=== PATIENT | female | born 1985 | race Caucasian/White ===

== ENCOUNTER 2021-09-17 13:10 | Emergency (ER) | payer BC ==
[2021-09-17 14:48] LABS: Bilirubin Neg (Negative); Blood, Urine Negative (Negative); Clarity Slightly Cloudy (Clear); Glucose, Urine (Dipstick) Normal (Negative); Ketone, Urine 5 mg/dL (Negative); Leukocyte 25 (Negative); Nitrite Negative (Negative); Protein, Urine (Dipstick) 15 mg/dl (Neg-Trace); Specific Gravity, Urine 1.025 (1.002-1.036); Urobilinogen Normal mg/dL (Less than 2)
[2021-09-17 15:03] LABS: RBC/HPF 0-3 HPF (0-3); Squamous Epithelial 0-3 HPF (0-3)
[2021-09-17 15:04] LABS: Bacteria/HPF 2+ HPF (None Seen); Mucous/LPF 2+ LPF (<2+)
[2021-09-17] MEDS ORDERED: Cephalexin 250 MG CAP ONE (17:00)
== END 2021-09-17 17:00 | disposition home or self-care (01) ==
LOC: CSHERS 13:10
DX: O23.42 Unspecified infection of urinary tract in pregnancy, second trimester (principal); N39.0 Urinary tract infection, site not specified; O44.02 Complete placenta previa NOS or without hemorrhage, second trimester; Z3A.14 14 weeks gestation of pregnancy
CPT/HCPCS: 76815; 81003; 81015; 87086

== ENCOUNTER 2022-01-03 13:10 | Day surgery (SDC) | payer BC ==
[2022-01-03 13:57] VITALS: BMI 23.3
[2022-01-03] MEDS ORDERED: Labetalol HCl 100 MG/20 ML VIAL SLOW IVP PRN (14:03)
[2022-01-03] MEDS ORDERED: Calcium Gluc 4.6 MEQ/10 ML (100 MG/ML) SLOW IVP PRN (14:03)
[2022-01-03] MEDS ORDERED: Lorazepam 2 MG/ML VIAL SLOW IVP PRN (14:03)
[2022-01-03] MEDS ORDERED: hydrALAZINE 20 MG/ML VIAL SLOW IVP PRN ×2 (14:03)
[2022-01-03 14:36] LABS: Creatinine, Urine 184.32 mg/dL (47-110)
[2022-01-03 15:37] LABS: #Basophils 0.1 10x3/uL (0.0-0.2); #Eosinphils 0.4 10x3/uL (0.0-0.5); #Monocytes 0.7 10x3/uL (0.0-1.1); #Neutrophils 7.8 10x3/uL (1.5-8.4); %Basophils 0.5 % (0.0-2.0); %Eosinophils 3.6 % (0.0-6.0); %Lymphocytes 18.8 % (18.0-47.0); %Monocytes 6.4 % (0.0-10.0); %Neutrophils 70.1 % (40.0-75.0); Hemoglobin 9.9 g/dL (12.0-15.5); Mean Corpuscular HGB CONC 34.1 g/dL (32.0-36.0); Mean Platelet Volume 9.3 fl (7.4-10.4); Platelet Count 281 10x3/uL (150-450); RBC Distribution Width 13.4 % (11.5-14.5); Red Blood Cell (RBC) Count 3.41 10x6/uL (3.90-5.03); White Blood Cell (WBC) Count 11.1 10x3/uL (3.5-10.5)
[2022-01-03 15:54] LABS: ALT (SGPT) 15 U/L (8-55); AST (SGOT) 22 U/L (5-34); Albumin 3.4 g/dL (3.5-5.0); Alkaline Phosphatase 99 U/L (40-110); Anion Gap 16 mmol/L (10-20); BUN (Urea Nitrogen) 10 mg/dL (7.0-18.7); Bilirubin, Total 0.3 mg/dL (0.2-1.2); Calc. Creatinine Clearance 129 mL/min (70-130); Calcium 8.5 mg/dL (7.8-10.44); Carbon Dioxide 19 mmol/L (22-29); Chloride 104 mmol/L (98-107); Estimated GFR 121; Globulin 2.5 g/dL (2.4-3.5); Glucose 67 mg/dL (70-105); Protein, Total 5.9 g/dL (6.0-8.3); Sodium 136 mmol/L (136-145)
[2022-01-03] MEDS ORDERED: Potassium Chloride 20 MEQ TAB PO SCH (16:30)
[2022-01-03] MEDS ORDERED: Cyclobenzaprine 10 MG TAB PO SCH (16:30)
[2022-01-03] MEDS ORDERED: Acetaminophen 500 MG TAB PO SCH (16:30)
== END 2022-01-03 18:38 | disposition home or self-care (01) ==
LOC: CSHLD/OP 13:10
PROVIDERS: ATTEND Obstetrics & Gynecology
DX: O60.03 Preterm labor without delivery, third trimester (principal); Z3A.29 29 weeks gestation of pregnancy; O16.3 Unspecified maternal hypertension, third trimester; O09.513 Supervision of elderly primigravida, third trimester; Z79.899 Other long term (current) drug therapy; Z88.1 Allergy status to other antibiotic agents; Z98.890 Other specified postprocedural states
CPT/HCPCS: 80053; 82570; 84156; 85025; 99285

== ENCOUNTER 2022-01-07 12:24 | Observation (INO) | payer BC ==
[2022-01-07] MEDS ORDERED: Labetalol HCl 100 MG/20 ML VIAL SLOW IVP PRN ×3 (13:35)
[2022-01-07] MEDS ORDERED: Lorazepam 2 MG/ML VIAL SLOW IVP PRN (13:35)
[2022-01-07] MEDS ORDERED: hydrALAZINE 20 MG/ML VIAL SLOW IVP PRN (13:35)
[2022-01-07] MEDS ORDERED: Zolpidem Tartrate 5 MG TAB PO PRN (13:41)
[2022-01-07 14:41] LABS: #Basophils 0.1 10x3/uL (0.0-0.2); #Eosinphils 0.8 10x3/uL (0.0-0.5); #Monocytes 0.7 10x3/uL (0.0-1.1); #Neutrophils 7.7 10x3/uL (1.5-8.4); %Basophils 0.5 % (0.0-2.0); %Eosinophils 6.9 % (0.0-6.0); %Lymphocytes 16.1 % (18.0-47.0); %Monocytes 6.5 % (0.0-10.0); %Neutrophils 69.4 % (40.0-75.0); Hemoglobin 9.9 g/dL (12.0-15.5); Mean Corpuscular HGB CONC 34.5 g/dL (32.0-36.0); Mean Corpuscular Hemoglobin 29.6 pg (27.0-33.0); Mean Corpuscular Volume 85.7 fl (81.6-98.3); Mean Platelet Volume 9.1 fl (7.4-10.4); Platelet Count 336 10x3/uL (150-450); RBC Distribution Width 13.2 % (11.5-14.5); Red Blood Cell (RBC) Count 3.35 10x6/uL (3.90-5.03); White Blood Cell (WBC) Count 11.1 10x3/uL (3.5-10.5)
[2022-01-07 14:54] LABS: ALT (SGPT) 27 U/L (8-55); AST (SGOT) 30 U/L (5-34); Albumin 3.4 g/dL (3.5-5.0); Alkaline Phosphatase 119 U/L (40-110); Anion Gap 19 mmol/L (10-20); BUN (Urea Nitrogen) 10 mg/dL (7.0-18.7); Bilirubin, Total 0.3 mg/dL (0.2-1.2); Calc. Creatinine Clearance 0 mL/min (70-130); Calcium 8.8 mg/dL (7.8-10.44); Carbon Dioxide 18 mmol/L (22-29); Chloride 104 mmol/L (98-107); Estimated GFR 117; Glucose 77 mg/dL (70-105); Potassium 3.5 mmol/L (3.5-5.1); Protein, Total 6.4 g/dL (6.0-8.3); Sodium 137 mmol/L (136-145)
[2022-01-07] MEDS ORDERED: HumaLOG 300 UNITS/3 ML VIAL SC PRN (15:09)
[2022-01-07] MEDS ORDERED: Dextrose 5% in Water 1,000 ML IV PRN (15:09)
[2022-01-07] MEDS ORDERED: Dextrose 50% Abboject 50 ML SYRINGE SLOW IVP PRN (15:09)
[2022-01-07 15:57] LABS: Creatinine, Urine 41.21 mg/dL (47-110); Protein, Urine Random Quant Less than 10 mg/dL (1-14)
[2022-01-07 15:58] VITALS: BMI 24.1
[2022-01-07] MEDS: Betamet Acet/Betamet Na Ph 30 MG/5 ML VIAL IM SCH (16:22)
[2022-01-07] MEDS: Ferrous Sulfate 325 MG TAB PO SCH (16:31)
[2022-01-07] MEDS ORDERED: Acetaminophen 500 MG TAB PO PRN (19:56)
[2022-01-07] MEDS ORDERED: NIFEdipine XL 90 MG TAB PO SCH (21:00)
[2022-01-08] MEDS ORDERED: NIFEdipine XL 60 MG TAB PO SCH ×2 (08:45→21:00)
[2022-01-08] MEDS ORDERED: Labetalol HCl 100 MG TAB PO SCH (08:45)
[2022-01-08] MEDS ORDERED: NIFEdipine XL 90 MG TAB PO SCH (09:00)
[2022-01-08] MEDS: Prenatal Vitamin 1 TAB PO SCH (09:21)
[2022-01-08] MEDS: Ferrous Sulfate 325 MG TAB PO SCH ×2 (09:21→17:24)
[2022-01-08] MEDS: Aspirin 81 mg Enteric Coated Tablet PO SCH (09:22)
[2022-01-08] MEDS: Betamet Acet/Betamet Na Ph 30 MG/5 ML VIAL IM SCH (15:08)
[2022-01-08] MEDS: Labetalol HCl 100 MG TAB PO SCH (21:28)
[2022-01-09] MEDS: Ferrous Sulfate 325 MG TAB PO SCH (08:58)
[2022-01-09] MEDS: Prenatal Vitamin 1 TAB PO SCH (08:58)
[2022-01-09] MEDS: Aspirin 81 mg Enteric Coated Tablet PO SCH (08:59)
[2022-01-09] MEDS: Labetalol HCl 100 MG TAB PO SCH (09:11)
[2022-01-09 10:17] VITALS: BP 119/70; TEMP 97.8
== END 2022-01-09 11:20 | disposition home health service (06) ==
LOC: CSHANTE 12:24
PROVIDERS: ADMIT Obstetrics & Gynecology; ATTEND Obstetrics & Gynecology
DX: O16.3 Unspecified maternal hypertension, third trimester (principal); Z3A.29 29 weeks gestation of pregnancy; O24.410 Gestational diabetes mellitus in pregnancy, diet controlled; O99.413 Diseases of the circulatory system complicating pregnancy, third trimester; Z79.82 Long term (current) use of aspirin; Z79.01 Long term (current) use of anticoagulants; Z79.899 Other long term (current) drug therapy; Z96.641 Presence of right artificial hip joint; Z98.890 Other specified postprocedural states
CPT/HCPCS: 36415; 36416; 80053; 82570; 84156; 85025; J0702; J1815

== ENCOUNTER 2022-01-13 00:16 | Observation (INO) | payer BC ==
[2022-01-13 00:43] VITALS: BMI 24.3
[2022-01-13] MEDS ORDERED: hydrALAZINE 20 MG/ML VIAL SLOW IVP PRN ×2 (01:24→07:30)
[2022-01-13 02:28] LABS: #Eosinphils 0.7 10x3/uL (0.0-0.5); #Monocytes 0.6 10x3/uL (0.0-1.1); #Neutrophils 4.2 10x3/uL (1.5-8.4); %Basophils 0.1 % (0.0-2.0); %Eosinophils 9.4 % (0.0-6.0); %Lymphocytes 26.9 % (18.0-47.0); %Monocytes 8.1 % (0.0-10.0); %Neutrophils 54.8 % (40.0-75.0); Mean Corpuscular HGB CONC 33.6 g/dL (32.0-36.0); Mean Corpuscular Hemoglobin 29.1 pg (27.0-33.0); Mean Corpuscular Volume 86.7 fl (81.6-98.3); Mean Platelet Volume 9.3 fl (7.4-10.4); Platelet Count 369 10x3/uL (150-450); RBC Distribution Width 14.3 % (11.5-14.5); Red Blood Cell (RBC) Count 3.09 10x6/uL (3.90-5.03); White Blood Cell (WBC) Count 7.6 10x3/uL (3.5-10.5)
[2022-01-13 02:47] LABS: ALT (SGPT) 66 U/L (8-55); AST (SGOT) 37 U/L (5-34); Albumin 3.1 g/dL (3.5-5.0); Alkaline Phosphatase 97 U/L (40-110); Anion Gap 12 mmol/L (10-20); BUN (Urea Nitrogen) 13 mg/dL (7.0-18.7); Bilirubin, Total 0.2 mg/dL (0.2-1.2); Calc. Creatinine Clearance 121 mL/min (70-130); Calcium 9.2 mg/dL (7.8-10.44); Carbon Dioxide 24 mmol/L (22-29); Chloride 105 mmol/L (98-107); Estimated GFR 118; Globulin 2.6 g/dL (2.4-3.5); Glucose 85 mg/dL (70-105); Potassium 3.1 mmol/L (3.5-5.1); Protein, Total 5.7 g/dL (6.0-8.3); Sodium 138 mmol/L (136-145)
[2022-01-13] MEDS ORDERED: Ondansetron PF 4 MG/2 ML Vial IVP PRN (07:30)
[2022-01-13] MEDS ORDERED: Acetaminophen 500 MG TAB PO PRN (07:30)
[2022-01-13] MEDS ORDERED: Promethazine HCl 25 MG/ML VIAL IM PRN (07:30)
[2022-01-13] MEDS ORDERED: Labetalol HCl 200 MG TAB PO SCH (09:00)
[2022-01-13 11:37] VITALS: TEMP 98.1
[2022-01-13 14:37] LABS: Hemoglobin 8.7 g/dL (12.0-15.5); Mean Corpuscular HGB CONC 33.5 g/dL (32.0-36.0); Mean Corpuscular Hemoglobin 29.7 pg (27.0-33.0); Mean Corpuscular Volume 88.7 fl (81.6-98.3); Mean Platelet Volume 9.5 fl (7.4-10.4); Platelet Count 353 10x3/uL (150-450); RBC Distribution Width 14.2 % (11.5-14.5); Red Blood Cell (RBC) Count 2.93 10x6/uL (3.90-5.03)
[2022-01-13 14:50] LABS: ALT (SGPT) 56 U/L (8-55); AST (SGOT) 29 U/L (5-34); Albumin 2.9 g/dL (3.5-5.0); Alkaline Phosphatase 94 U/L (40-110); Anion Gap 11 mmol/L (10-20); BUN (Urea Nitrogen) 11 mg/dL (7.0-18.7); Bilirubin, Total 0.2 mg/dL (0.2-1.2); Calc. Creatinine Clearance 102 mL/min (70-130); Calcium 8.6 mg/dL (7.8-10.44); Carbon Dioxide 27 mmol/L (22-29); Chloride 106 mmol/L (98-107); Estimated GFR 112; Globulin 2.5 g/dL (2.4-3.5); Glucose 115 mg/dL (70-105); Potassium 3.3 mmol/L (3.5-5.1); Protein, Total 5.4 g/dL (6.0-8.3); Sodium 141 mmol/L (136-145)
[2022-01-13 15:59] VITALS: BP 118/69
[2022-01-13] MEDS ORDERED: NIFEdipine XL 60 MG TAB PO SCH (21:00)
== END 2022-01-13 16:30 | disposition home or self-care (01) ==
LOC: CSHLD/OP 00:16 → CSHLD 08:06 → CSHANTE 09:00
PROVIDERS: ADMIT Obstetrics & Gynecology; ATTEND Obstetrics & Gynecology
DX: O13.3 Gestational [pregnancy-induced] hypertension without significant proteinuria, third trimester (principal); O24.419 Gestational diabetes mellitus in pregnancy, unspecified control; Z79.899 Other long term (current) drug therapy; Z88.0 Allergy status to penicillin; Z3A.30 30 weeks gestation of pregnancy
CPT/HCPCS: 36415; 80053; 82570; 84156; 85025; 99283; G0378

== ENCOUNTER 2022-01-27 11:46 | Day surgery (SDC) | payer BC ==
[2022-01-27] MEDS ORDERED: Acetaminophen 500 MG TAB ONE (12:03)
[2022-01-27] MEDS ORDERED: Acetaminophen 500 MG TAB PO SCH (12:15)
[2022-01-27] MEDS ORDERED: Iron Sucrose Complex 500 MG in Sodium Chloride 0.9% 250 ML 250 ML IVPB SCH (12:15)
== END 2022-01-27 16:45 | disposition home or self-care (01) ==
LOC: CSHSDC/OP 11:46
PROVIDERS: ATTEND Obstetrics & Gynecology
DX: O99.012 Anemia complicating pregnancy, second trimester (principal); D64.9 Anemia, unspecified; Z88.0 Allergy status to penicillin
CPT/HCPCS: J1756; J7050

== ENCOUNTER 2022-01-30 23:47 | Day surgery (SDC) | payer BC ==
[2022-01-31 00:13] VITALS: BMI 24.3
[2022-01-31] MEDS ORDERED: hydrALAZINE 20 MG/ML VIAL SLOW IVP PRN (00:48)
[2022-01-31 01:34] LABS: #Basophils 0.1 10x3/uL (0.0-0.2); #Eosinphils 0.3 10x3/uL (0.0-0.5); #Monocytes 0.6 10x3/uL (0.0-1.1); #Neutrophils 4.6 10x3/uL (1.5-8.4); %Basophils 0.7 % (0.0-2.0); %Eosinophils 4.2 % (0.0-6.0); %Lymphocytes 30.6 % (18.0-47.0); %Monocytes 7.6 % (0.0-10.0); %Neutrophils 56.2 % (40.0-75.0); Hemoglobin 9.5 g/dL (12.0-15.5); Mean Corpuscular HGB CONC 33.5 g/dL (32.0-36.0); Mean Corpuscular Hemoglobin 29.6 pg (27.0-33.0); Mean Corpuscular Volume 88.5 fl (81.6-98.3); Mean Platelet Volume 9.4 fl (7.4-10.4); Platelet Count 219 10x3/uL (150-450); RBC Distribution Width 15.8 % (11.5-14.5); Red Blood Cell (RBC) Count 3.21 10x6/uL (3.90-5.03); White Blood Cell (WBC) Count 8.1 10x3/uL (3.5-10.5)
[2022-01-31 01:42] LABS: Bilirubin Neg (Negative); Blood, Urine Negative (Negative); Clarity Clear (Clear); Glucose, Urine (Dipstick) Normal (Negative); Ketone, Urine 5 mg/dL (Negative); Leukocyte Negative (Negative); Nitrite Negative (Negative); Protein, Urine (Dipstick) Negative (Neg-Trace); Specific Gravity, Urine 1.005 (1.005-1.030); Urobilinogen Normal mg/dL (Less than 2)
[2022-01-31 01:50] LABS: ALT (SGPT) 11 U/L (8-55); AST (SGOT) 21 U/L (5-34); Alkaline Phosphatase 144 U/L (40-110); Anion Gap 13 mmol/L (10-20); BUN (Urea Nitrogen) 11 mg/dL (7.0-18.7); Bilirubin, Total 0.2 mg/dL (0.2-1.2); Calc. Creatinine Clearance 130 mL/min (70-130); Carbon Dioxide 21 mmol/L (22-29); Chloride 107 mmol/L (98-107); Estimated GFR 120; Globulin 2.5 g/dL (2.4-3.5); Glucose 83 mg/dL (70-105); Potassium 3.3 mmol/L (3.5-5.1); Protein, Total 5.5 g/dL (6.0-8.3); Sodium 138 mmol/L (136-145)
[2022-01-31 01:54] LABS: Bacteria/HPF 1+ HPF (None Seen); RBC/HPF None Seen HPF (0-3); Squamous Epithelial 0-3 HPF (0-3); WBC/HPF 0-3 HPF (0-3)
[2022-01-31 01:55] LABS: Urine Culture Reflex Yes Yes
[2022-01-31 02:01] LABS: Creatinine, Urine 20.96 mg/dL (47-110); Protein, Urine Random Quant Less than 10 mg/dL (1-14)
== END 2022-01-31 09:10 | disposition home or self-care (01) ==
LOC: CSHLD/OP 23:47
PROVIDERS: ATTEND Obstetrics & Gynecology
DX: O16.3 Unspecified maternal hypertension, third trimester (principal); O24.410 Gestational diabetes mellitus in pregnancy, diet controlled; Z3A.33 33 weeks gestation of pregnancy; Z88.1 Allergy status to other antibiotic agents; Z91.018 Allergy to other foods; Z79.82 Long term (current) use of aspirin; Z79.899 Other long term (current) drug therapy
CPT/HCPCS: 36415; 76819; 80053; 81001; 82570; 84156; 85025; 87086; 99284

== ENCOUNTER 2022-02-20 11:16 | Day surgery (SDC) | payer BC ==
[2022-02-20] MEDS ORDERED: hydrALAZINE 20 MG/ML VIAL SLOW IVP PRN (13:39)
[2022-02-20 13:43] LABS: #Eosinphils 0.2 10x3/uL (0.0-0.5); #Monocytes 0.6 10x3/uL (0.0-1.1); %Basophils 0.5 % (0.0-2.0); %Eosinophils 2.6 % (0.0-6.0); %Lymphocytes 21.4 % (18.0-47.0); %Monocytes 6.6 % (0.0-10.0); Hemoglobin 10.9 g/dL (12.0-15.5); Mean Corpuscular HGB CONC 34.1 g/dL (32.0-36.0); Mean Corpuscular Hemoglobin 30.4 pg (27.0-33.0); Mean Corpuscular Volume 89.4 fl (81.6-98.3); Mean Platelet Volume 10.1 fl (7.4-10.4); Platelet Count 225 10x3/uL (150-450); RBC Distribution Width 15.6 % (11.5-14.5); Red Blood Cell (RBC) Count 3.58 10x6/uL (3.90-5.03); White Blood Cell (WBC) Count 8.9 10x3/uL (3.5-10.5)
[2022-02-20 14:01] LABS: ALT (SGPT) 10 U/L (8-55); AST (SGOT) 18 U/L (5-34); Albumin 3.2 g/dL (3.5-5.0); Alkaline Phosphatase 161 U/L (40-110); Anion Gap 12 mmol/L (10-20); BUN (Urea Nitrogen) 9 mg/dL (7.0-18.7); Bilirubin, Total 0.3 mg/dL (0.2-1.2); Calc. Creatinine Clearance 0 mL/min (70-130); Calcium 8.8 mg/dL (7.8-10.44); Carbon Dioxide 22 mmol/L (22-29); Chloride 107 mmol/L (98-107); Estimated GFR 117; Globulin 2.8 g/dL (2.4-3.5); Glucose 86 mg/dL (70-105); Potassium 3.9 mmol/L (3.5-5.1); Sodium 137 mmol/L (136-145)
== END 2022-02-20 15:55 | disposition home or self-care (01) ==
LOC: CSHLD/OP 11:16
PROVIDERS: ATTEND Obstetrics & Gynecology
DX: O16.3 Unspecified maternal hypertension, third trimester (principal); O24.410 Gestational diabetes mellitus in pregnancy, diet controlled; Z3A.36 36 weeks gestation of pregnancy; Z79.899 Other long term (current) drug therapy
CPT/HCPCS: 76819; 80053; 81003; 82570; 85025

== ENCOUNTER 2022-02-23 14:06 | Inpatient (IN) | payer BC ==
[~2022-02-23 14:06] MED LIST: Bupivacaine 0.25% HCL 30 ML VIAL ONE; Bupivacaine/Epinephrine 0.25% 30 ML VIAL ONE; ePHEDrine Sulfate 50 MG/10 ML VIAL ONE
[2022-02-23 14:46] VITALS: BMI 25.0
[2022-02-23] MEDS ORDERED: Diphenoxylate HCl/Atropine Tablet PO PRN ×2 (15:18)
[2022-02-23] MEDS ORDERED: Butorphanol Tartrate 1 MG/ML VIAL SLOW IVP PRN (15:18)
[2022-02-23] MEDS ORDERED: hydrALAZINE 20 MG/ML VIAL SLOW IVP PRN ×3 (15:18)
[2022-02-23] MEDS ORDERED: Lorazepam 2 MG/ML VIAL SLOW IVP PRN (15:18)
[2022-02-23] MEDS ORDERED: Labetalol HCl 100 MG/20 ML VIAL SLOW IVP PRN (15:18)
[2022-02-23] MEDS ORDERED: Ibuprofen 800 MG TAB PO PRN (15:18)
[2022-02-23] MEDS ORDERED: Calcium Gluc 4.6 MEQ/10 ML (100 MG/ML) SLOW IVP PRN (15:18)
[2022-02-23] MEDS ORDERED: HYDROcodone/Acetaminophen 5/325 mg Tablet PO PRN ×2 (15:18)
[2022-02-23] MEDS ORDERED: Misoprostol 200 MCG TAB PR PRN (15:18)
[2022-02-23] MEDS ORDERED: Acetaminophen 500 MG TAB PO PRN (15:18)
[2022-02-23] MEDS ORDERED: Lidocaine 1% (PF) 30 ML VIAL SC PRN (15:18)
[2022-02-23] MEDS ORDERED: Ondansetron PF 4 MG/2 ML Vial IVP PRN ×2 (15:18→21:50)
[2022-02-23] MEDS ORDERED: Promethazine HCl 25 MG/ML VIAL IM PRN ×2 (15:18→21:50)
[2022-02-23] MEDS ORDERED: Carboprost 250 MCG/ML AMP IM PRN (15:18)
[2022-02-23] MEDS ORDERED: NS w/ Oxytocin 30 units 500 ML IV SCH ×2 (15:30)
[2022-02-23] MEDS: Misoprostol 100 MCG TAB VAG SCH ×2 (15:41→22:48)
[2022-02-23 15:45] LABS: Hemoglobin 11.5 g/dL (12.0-15.5); Mean Corpuscular HGB CONC 33.9 g/dL (32.0-36.0); Mean Corpuscular Volume 88.5 fl (81.6-98.3); Mean Platelet Volume 10.1 fl (7.4-10.4); Platelet Count 241 10x3/uL (150-450); RBC Distribution Width 15.4 % (11.5-14.5); Red Blood Cell (RBC) Count 3.83 10x6/uL (3.90-5.03); White Blood Cell (WBC) Count 9.1 10x3/uL (3.5-10.5)
[2022-02-23 16:19] LABS: HBSAg Index 0.14 S/CO (0-0.99); Hep B Surf Ag Non-Reactive S/CO (NonReactive)
[2022-02-23 16:21] LABS: Syphilis Antibody Nonreactive (Nonreactive); Syphilis Antibody Index 0.06 S/CO (<1.00 Non-Reactive)
[2022-02-23] MEDS ORDERED: Magnesium Sulfate 20 gm/500 ml 20 GM/500 ML BAG ONE (17:39)
[2022-02-23 17:44] LABS: ALT (SGPT) 8 U/L (8-55); AST (SGOT) 19 U/L (5-34); Albumin 3.3 g/dL (3.5-5.0); Alkaline Phosphatase 187 U/L (40-110); Anion Gap 16 mmol/L (10-20); BUN (Urea Nitrogen) 10 mg/dL (7.0-18.7); Bilirubin, Total 0.3 mg/dL (0.2-1.2); Calc. Creatinine Clearance 120 mL/min (70-130); Calcium 8.6 mg/dL (7.8-10.44); Carbon Dioxide 18 mmol/L (22-29); Chloride 105 mmol/L (98-107); Estimated GFR 116; Globulin 2.4 g/dL (2.4-3.5); Glucose 122 mg/dL (70-105); Potassium 3.6 mmol/L (3.5-5.1); Protein, Total 5.7 g/dL (6.0-8.3); Sodium 135 mmol/L (136-145)
[2022-02-23 19:14] LABS: Creatinine, Urine 46.64 mg/dL (47-110)
[2022-02-23] MEDS: Labetalol HCl 100 MG/20 ML VIAL SLOW IVP PRN ×2 (19:16→20:40)
[2022-02-23] MEDS ORDERED: Fentanyl 2 mcg/Bup 0.1% Cadd 100 ML ONE (20:15)
[2022-02-23] MEDS ORDERED: PHENYLEPHRINE-NS 100 MCG/ML 10 ML SYRINGE ONE (21:36)
[2022-02-23] MEDS ORDERED: Moisturizing Cream (Eucerin) 113 GM JAR TOP PRN (21:50)
[2022-02-23] MEDS ORDERED: Acetaminophen 325 MG TAB PO PRN (21:50)
[2022-02-23] MEDS ORDERED: diphenhydrAMINE 50 MG/ML VIAL IVP PRN (21:50)
[2022-02-23] MEDS ORDERED: Naloxone HCl 0.4 mg/ml Vial IVP PRN ×2 (21:50)
[2022-02-23] MEDS ORDERED: Lactated Ringer's 500 ML IV PRN (21:50)
[2022-02-23] MEDS ORDERED: ePHEDrine Sulfate 50 MG/10 ML VIAL SLOW IVP PRN (21:50)
[2022-02-23] MEDS ORDERED: Fentanyl 2 mcg/Bupivacaine 0.1% Cassette 100 ML EPIDURAL SCH (22:00)
[2022-02-23] MEDS ORDERED: Communication Order-Pharmacy FS SCH (22:00)
[2022-02-23] MEDS: Lactated Ringer's 1,000 ML IV SCH (22:48)
[2022-02-24] MEDS ORDERED: Magnesium Sulfate 20 gm/500 ml 20 GM/500 ML BAG ONE ×2 (03:43→16:00)
[2022-02-24] MEDS ORDERED: Fentanyl 2 mcg/Bup 0.1% Cadd 100 ML ONE ×2 (05:33→13:13)
[2022-02-24 07:12] LABS: SARS-CoV-2 NAA Rapid Test Not Detected (NotDetected)
[2022-02-24] MEDS ORDERED: Calcium Carbonate 500 MG ChewTAB PO SCH (11:45)
[2022-02-24] MEDS: NIFEdipine XL 60 MG TAB PO SCH (12:55)
[2022-02-24] MEDS: Magnesium Sulfate 20 gm/500 ml 20 GM/500 ML BAG IVPB SCH (16:10)
[2022-02-24] MEDS ORDERED: Famotidine/PF 20 mg/2ml Vial SLOW IVP SCH (17:15)
[2022-02-24] MEDS ORDERED: Labetalol HCl 100 MG/20 ML VIAL SLOW IVP PRN (17:54)
[2022-02-24] MEDS ORDERED: Misoprostol 200 MCG TAB ONE (20:19)
[2022-02-24] MEDS ORDERED: Tranexamic Acid 1,000 MG/10 ML VIAL ONE (20:20)
[2022-02-24] MEDS ORDERED: Carboprost 250 MCG/ML AMP ONE ×2 (20:20→21:34)
[2022-02-24] MEDS ORDERED: Methylergonovine 0.2 MG/ML VIAL ONE (20:21)
[2022-02-24] MEDS ORDERED: Diphenoxylate HCl/Atropine Tablet PO SCH (21:30)
[2022-02-24] MEDS ORDERED: hydrALAZINE 20 MG/ML VIAL SLOW IVP PRN (21:39)
[2022-02-24] MEDS ORDERED: traMADol HCl 50 MG TAB PO PRN (21:40)
[2022-02-24] MEDS ORDERED: Carboprost 250 MCG/ML AMP IM SCH (21:45)
[2022-02-24] MEDS ORDERED: Tranexamic Acid 1,000 MG in Sodium Chloride 0.9% 250 ML 250 ML IVPB SCH (21:45)
[2022-02-24] MEDS ORDERED: Labetalol HCl 100 MG/20 ML VIAL SLOW IVP SCH (21:45)
[2022-02-24] MEDS: Lactated Ringer's 1,000 ML IV SCH ×2 (22:31→22:32)
[2022-02-24] MEDS: Misoprostol 100 MCG TAB VAG SCH (22:32)
[2022-02-24] MEDS: Ibuprofen 800 MG TAB PO PRN (22:37)
[2022-02-25 00:14] LABS: Hemoglobin 11.3 g/dL (12.0-15.5); Mean Corpuscular HGB CONC 33.5 g/dL (32.0-36.0); Mean Corpuscular Hemoglobin 30.4 pg (27.0-33.0); Mean Corpuscular Volume 90.6 fl (81.6-98.3); Mean Platelet Volume 9.9 fl (7.4-10.4); Platelet Count 256 10x3/uL (150-450); RBC Distribution Width 15.5 % (11.5-14.5); Red Blood Cell (RBC) Count 3.72 10x6/uL (3.90-5.03); White Blood Cell (WBC) Count 24.1 10x3/uL (3.5-10.5)
[2022-02-25 00:18] LABS: Magnesium 4.6 mg/dL (1.6-2.6)
[2022-02-25] MEDS: Magnesium Sulfate 20 gm/500 ml 20 GM/500 ML BAG IVPB SCH ×2 (02:21→12:30)
[2022-02-25 06:25] LABS: Hemoglobin 9.9 g/dL (12.0-15.5); Mean Corpuscular HGB CONC 34.4 g/dL (32.0-36.0); Mean Corpuscular Hemoglobin 30.3 pg (27.0-33.0); Mean Corpuscular Volume 88.1 fl (81.6-98.3); Mean Platelet Volume 10.1 fl (7.4-10.4); Platelet Count 240 10x3/uL (150-450); RBC Distribution Width 15.5 % (11.5-14.5); Red Blood Cell (RBC) Count 3.27 10x6/uL (3.90-5.03); White Blood Cell (WBC) Count 20.6 10x3/uL (3.5-10.5)
[2022-02-25] MEDS: Ibuprofen 800 MG TAB PO PRN ×2 (07:13→16:10)
[2022-02-25] MEDS: NIFEdipine XL 60 MG TAB PO SCH (08:30)
[2022-02-25] MEDS: Losartan 25 MG TAB PO SCH (08:30)
[2022-02-25] MEDS: HYDROcodone/Acetaminophen 5/325 mg Tablet PO PRN ×3 (08:31→18:22)
[2022-02-26] MEDS: Ibuprofen 800 MG TAB PO PRN ×4 (00:26→21:29)
[2022-02-26] MEDS: HYDROcodone/Acetaminophen 5/325 mg Tablet PO PRN ×4 (06:20→21:29)
[2022-02-26] MEDS: Losartan 25 MG TAB PO SCH (08:59)
[2022-02-26] MEDS: NIFEdipine XL 60 MG TAB PO SCH (08:59)
[2022-02-26] MEDS: Lactated Ringer's 1,000 ML IV SCH ×3 (15:24→15:29)
[2022-02-26] MEDS: Misoprostol 100 MCG TAB VAG SCH ×3 (15:29→15:31)
[2022-02-26] MEDS: Ferrous Sulfate 325 MG TAB PO SCH (15:52)
[2022-02-27] MEDS: Ibuprofen 800 MG TAB PO PRN (05:18)
[2022-02-27] MEDS: Ferrous Sulfate 325 MG TAB PO SCH (08:04)
[2022-02-27] MEDS: HYDROcodone/Acetaminophen 5/325 mg Tablet PO PRN (08:05)
[2022-02-27] MEDS ORDERED: NIFEdipine XL 60 MG TAB PO SCH (09:00)
[2022-02-27] MEDS ORDERED: Prenatal Vitamin 1 TAB PO SCH (09:00)
[2022-02-27] MEDS ORDERED: Losartan 25 MG TAB PO SCH (09:00)
[2022-02-27 10:03] VITALS: BP 133/76; TEMP 97.6
== END 2022-02-27 12:30 | disposition home or self-care (01) | DRG 807 ==
LOC: CSHLD 14:06 → CSHPP 02-26 14:48
PROVIDERS: ADMIT Obstetrics & Gynecology; ATTEND Obstetrics & Gynecology
PROC: 3E0P7VZ Introduction of Hormone into Female Reproductive, Via Natural or Artificial Opening (ICD-10-PCS; 2022-02-23)
PROC: 10E0XZZ Delivery of Products of Conception, External Approach (ICD-10-PCS; principal; 2022-02-24)
PROC: 3E0334Z Introduction of Serum, Toxoid and Vaccine into Peripheral Vein, Percutaneous Approach (ICD-10-PCS; 2022-02-24)
DX: O11.4 Pre-existing hypertension with pre-eclampsia, complicating childbirth (principal); Z37.0 Single live birth; O10.92 Unspecified pre-existing hypertension complicating childbirth; Z3A.36 36 weeks gestation of pregnancy; Z20.822 Contact with and (suspected) exposure to COVID-19; O26.893 Other specified pregnancy related conditions, third trimester; Z67.41 Type O blood, Rh negative; Z79.82 Long term (current) use of aspirin; Z79.899 Other long term (current) drug therapy; O72.1 Other immediate postpartum hemorrhage; Z88.1 Allergy status to other antibiotic agents; Z91.018 Allergy to other foods; O90.81 Anemia of the puerperium; D50.8 Other iron deficiency anemias
CPT/HCPCS: 36415; 51702; 71045; 76819; 80053; 81003; 82570; 83735; 84156; 85025; 85027; 85461; 86780; 86850; 86900; 86901; 87340; 90384; 96372; 99281; J0360; J2405; J2590; J3475; J3490; J7050; S0020; S0028; U0002

== ENCOUNTER 2024-01-09 12:35 | Outpatient (CLI) | payer BC | END 2024-01-09 12:36 | disposition home or self-care (01) | LOC: CSHULT 12:35 | PROVIDERS: ATTEND Family Medicine | DX: R03.0 Elevated blood-pressure reading, without diagnosis of hypertension (principal) | CPT/HCPCS: 93306 ==